=== PATIENT | male | born 1960 | race Caucasian/White ===

== ENCOUNTER 2018-10-03 17:10 | Inpatient (IN) | payer BC ==
[2018-10-03] MEDS ORDERED: ONDANSETRON 4 MG/2 ML VIAL ONE (17:40)
[2018-10-03] MEDS ORDERED: NA CHLORIDE 0.9% 1,000 ML ONE (17:40)
[2018-10-03] MEDS ORDERED: MORPHINE 4 MG/ML SYR ONE ×3 (17:40→21:39)
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
[2018-10-03 20:04] LABS: Absolute Lymphocytes (CBC) 0.8 K/uL (0.7-4.9); Absolute Monocytes 0.8 K/uL (0.1-1.3); Absolute Neutrophil 13.9 K/uL (1.8-8.0); Basophils % 0.1 % (0-1.3); Lymphocytes % 5.1 % (15.3-44.8); Monocytes % 5.3 % (3.3-12.3); RBC Red Blood Cell Count 4.59 M/uL (4.33-5.43)
[2018-10-03 20:13] LABS: Potassium 3.7 mmol/L (3.5-5.1)
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
[2018-10-03 22:19] VITALS: BMI 27.0
[2018-10-03] MEDS ORDERED: MORPHINE 4 MG/ML SYR IV PRN (22:36)
[2018-10-03] MEDS ORDERED: ONDANSETRON 4 MG/2 ML VIAL IV PRN (22:36)
[2018-10-03 23:50] LABS: Blood Morphology Comment NOT SEEN (NOT SEEN); Platelet Estimate ADEQ; Urine White Blood Cell Casts OK
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
[2018-10-04 06:09] LABS: Absolute Lymphocytes (CBC) 1.8 K/uL (0.7-4.9); Absolute Monocytes 0.8 K/uL (0.1-1.3); Basophils % 0.4 % (0-1.3); Eosinophils % 0.2 % (0-4.4); Hematocrit 36.4 % (39.6-49.0); Lymphocytes % 21.1 % (15.3-44.8); MPV 7.7 fL (7.6-11.3); Monocytes % 9.3 % (3.3-12.3); RBC Red Blood Cell Count 3.88 M/uL (4.33-5.43)
[2018-10-04 06:33] LABS: ALT/SGPT 27 U/L (12-78); AST/SGOT 33 U/L (15-37); Albumin 3.1 g/dL (3.4-5.0); Alkaline Phosphatase 78 U/L (45-117); BUN Blood Urea Nitrogen 17 mg/dL (7-18); Bicarbonate 27 mmol/L (21-32); Bilirubin Total 0.7 mg/dL (0.2-1.0); Glucose Level 99 mg/dL (74-106); Potassium 3.5 mmol/L (3.5-5.1); Protein, Total 6.1 g/dL (6.4-8.2); Sodium Level 143 mmol/L (136-145); Troponin I < 0.02 ng/mL (0.0-0.045)
--- NOTE | 2018-10-04 08:44 | RAD REPORT ---
EXAM DESCRIPTION: [place] Single View10/04/2018 6:46 am CLINICAL HISTORY: Chest pain COMPARISON: October 03, 2018 CT FINDINGS: Small to moderate right pneumothorax appears unchanged when compared to the prior CT Lungs appear clear of acute infiltrate. Multiple right rib fractures are unchanged. The heart is normal size IMPRESSION: Small to moderate right pneumothorax is without obvious change from the prior CT
[2018-10-04] MEDS ORDERED: INFLUENZA VACCINE (for 3y+) 0.5 ML DOSE IMVAC ONE (11:00)
--- NOTE | 2018-10-04 14:53 | P.PN ---
Date of Service: 10/04/18 S: Patient more short today. Finds it difficult to move around. Moderate effort on incentive spirometry. O: Air entry equal bilaterally, slightly diminished on the right side. She chest x-ray shows pneumothorax no real change or improvement A: Patient remains surgically stable P: Anticipate pneumothorax should start resolving soon. Not in any respiratory distress. Will reassess him again tomorrow regarding thoracostomy catheter
[2018-10-04] MEDS: HYDROCODONE/APAP 7.5/325 MG TAB PO PRN (15:27)
[2018-10-04] MEDS: MORPHINE 4 MG/ML SYR IV PRN ×2 (17:10→20:36)
[2018-10-04] MEDS: AMLODIPINE 10 MG TAB PO SCH (17:10)
--- NOTE | 2018-10-04 20:00 | RAD REPORT ---
EXAM DESCRIPTION: RAD - Shoulder Right 2 View - 10/04/2018 6:41 pm CLINICAL HISTORY: Right shoulder pain FINDINGS: No fracture or dislocation involving the right shoulder. The right pneumothorax is without obvious change
[2018-10-05] MEDS: MORPHINE 4 MG/ML SYR IV PRN ×2 (00:45→04:09)
[2018-10-05 01:25] LABS: Urine Appearance CLEAR; Urine Bilirubin NEGATIVE (NEG); Urine Blood 3+ (NEG); Urine Color YELLOW; Urine Glucose NEGATIVE (NEG); Urine Microscopic Reflex ORDER UMIC; Urine Protein NEGATIVE (NEG); Urine Specific Gravity 1.015 (1.005-1.030); Urine Urobilinogen 0.2 mg/dL (0.2-1.0)
[2018-10-05 01:34] LABS: Urine Bacteria <20 /HPF (NONE SEEN); Urine Culture Reflex Order NOT NEEDED; Urine RBC >50 /HPF (NONE SEEN)
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
[2018-10-05] MEDS: AMLODIPINE 10 MG TAB PO SCH ×2 (09:00→09:14)
[2018-10-05] MEDS: HYDROCODONE/APAP 7.5/325 MG TAB PO PRN ×3 (09:58→19:02)
--- NOTE | 2018-10-05 15:07 | P.PN ---
Date of Service: 10/05/18 S: Patient feels better today, moving around the low with less pain. Doing better on oral medications. O: Vital signs remain stable, no for fracture seen on the she shoulder x-ray, chest x-ray is equivocal regarding improvement of the right pneumothorax but clinically the patient appears much better A: Making progress status post right-sided rib fractures with pneumothorax P: Continue current therapy, may discharge patient tomorrow pending chest x-ray
[2018-10-05 21:58] VITALS: O2SAT 93
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
[2018-10-06] MEDS: AMLODIPINE 10 MG TAB PO SCH (08:58)
[2018-10-06] MEDS: HYDROCODONE/APAP 7.5/325 MG TAB PO PRN (09:06)
--- NOTE | 2018-10-06 09:21 | RAD REPORT ---
EXAM DESCRIPTION: CT - Thorax Wo Con - 10/06/2018 8:24 am CLINICAL HISTORY: Chest pain COMPARISON: October 05, 2018 chest x-ray TECHNIQUE: Computed axial tomography of the chest was obtained. Contrast was not requested. All CT scans are performed using dose optimization technique as appropriate and may include automated exposure control or mA/KV adjustment according to patient size. FINDINGS: The evaluation of mediastinum, makayla and vessels is limited secondary to lack of IV contras t administration. The right pneumothorax has resolved since the prior examination. Bibasilar atelectasis right greater than right No mediastinal or hilar lymphadenopathy is seen. A minimal right pleural effusion is present. A pericardial effusion is not noted. Multiple right rib fractures are again demonstrated. IMPRESSION: Resolution of the right pneumothorax
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
[2018-10-06 16:12] VITALS: BP 133/62; TEMP 97.6
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
== END 2018-10-06 17:00 | disposition home or self-care (01) | DRG 200 ==
LOC: ER 17:10 → ERHOLD 20:04 → 2ND 10-04 13:22
PROVIDERS: ADMIT Surgery; ATTEND Surgery
DX: S27.0XXA Traumatic pneumothorax, initial encounter (principal); S22.41XA Multiple fractures of ribs, right side, initial encounter for closed fracture; N17.9 Acute kidney failure, unspecified; V28.0XXA Motorcycle driver injured in noncollision transport accident in nontraffic accident, initial encounter; Y93.55 Activity, bike riding; Y92.838 Other recreation area as the place of occurrence of the external cause; D72.829 Elevated white blood cell count, unspecified; I10 Essential (primary) hypertension
CPT/HCPCS: 36415; 70450; 71045; 71250; 71260; 72125; 74177; 80048; 80053; 81003; 81015; 83735; 84100; 84484; 85025; J2405; J7030; Q2035; Q9967